=== PATIENT | female | born 1990 | race Caucasian/White ===

== ENCOUNTER 2016-06-15 08:36 | Emergency (ER) | payer OTHER ==
[2016-06-15 08:54] LABS: APPEARANCE,URINE Clear (CLEAR); COLOR,URINE Yellow (YELLOW); OCCULT BLOOD,URINE 2+ (NEGATIVE); PH URINE 5.5 (5.0 - 8.0); UROBILINOGEN URINE 0.2 Eu (0.2-1.0)
--- NOTE | 2016-06-15 09:00 | ED Physician Documentation ---
Female Urogenital Problems - HISTORIAN Historian: patient - HPI Stated Complaint: Difficulty Urinating Chief Complaint: Female Urogenital Problems Additional Information: 26 yo F here for dysuria, increased frequency x2-3 days. No f/c/n/v. Did have laparoscopic surgery to remove R falopian tube and ovary May 09, has been urinating well since that time. LMP 2 weeks ago and normal for her. No vaginal discharge, bleeding. No change in BM. No flank pain. Feels like she has to "sit on the toilet constantly, it always feels like i have to go." When she does urinate it is only small amount. States reluctant to drink b/c of dysuria. All other systems reviewed and negative except per HPI. - Associated Symptoms Urinary Symptoms: frequent urination, discomfort w/ urination, burning w/ urination, urgency w/ urination, pain w/ urination Discharge: denies: vaginal discharge - ROS CONST: none GI/: denies: nausea, vomiting, decreased appetite CVS/RESP: none EYES/ENT: none NEURO/PSYCH: none MS/SKIN/LYMPH: none - PAST HX Past History: other (anxiety) Surgeries/Procedures: salpingo-oophorectomy Allergies/Adverse Reactions: Allergies Allergy/AdvReac Type Severity Reaction Status Date / Time No Known Allergies Allergy Verified 06/15/16 08:52 - SOCIAL HX Smoking History: greater than 1 pack/day Alcohol Use: none Drug Use: none - FAMILY HX Family History: none - VITAL SIGNS Vital Signs: Vital Signs Temp Pulse Resp BP Pulse Ox 97.8 F 98 H 18 137/103 99 06/15/16 08:40 06/15/16 08:40 06/15/16 08:40 06/15/16 08:40 06/15/16 08:40 - REVIEWED ASSESSMENTS Nursing Assessment Reviewed: Yes Vitals Reviewed: Yes ED Results Lab/Radiology - Orders Orders: ED Orders Category Date Time Status In & Out Cath [Intermittent urinary catheteri] 1T Care 06/15/16 08:47 Active URINALYSIS Routine Lab 06/15/16 08:50 Received Female Urogenital Problems - EXAM General Appearance: mild distress EENT: ENT inspection normal, pharynx normal Respiratory: no resp. distress, breath sounds nml CVS: reg rate & rhythm, heart sounds normal, no murmur Abdomen: soft, non-tender, no organomegaly, nml bowel sounds, tenderness ( suprapubic. No rebound or guarding. ) Skin: color nml, no rash, warm,dry Extremities: non-tender Neuro: oriented X3 Discharge Clincal Impression: Urinary tract infection Qualifiers: Urinary tract infection type: acute cystitis Hematuria presence: with hematuria Qualified Code(s): N30.01 - Acute cystitis with hematuria Referrals: Jos Pradhan MD [Primary Care Provider] - 2 Days Comments: Cath specimen, but still with sig squam. Still looks like UTI and fits clinical picture. Treat with bactrim and Azo. RTC prn Condition: Good Disposition: 01 HOME, SELF-CARE Decision to Admit: NO Decision Time: 09:11
[2016-06-15 09:07] LABS: AMORPHOUS SEDIMENT,UR MODERATE (NEGATIVE)
[2016-06-15 09:21] VITALS: BP 120/68
== END 2016-06-15 09:14 | disposition home or self-care (01) ==
LOC: ED 08:36
DX: N30.01 Acute cystitis with hematuria (principal); F17.210 Nicotine dependence, cigarettes, uncomplicated
CPT/HCPCS: 51701; 81002; 87086; 87186; 99283

== ENCOUNTER 2016-12-03 14:51 | Emergency (ER) | payer OTHER ==
--- NOTE | 2016-12-03 15:34 | ED Physician Documentation ---
General Adult - HISTORIAN Historian: patient - HPI Chief Complaint: Psychological Disorder Onset: days ago Timing: still present Severity: moderate Further Comments: yes (Patient states that she has been having some depression for the last 5 month. Has had some depression for some time. Has been thingking about dying a lot. Does not feel that she is suicidial. Has been taking xanax and does not feel that it is helping for her anxiety. Feels tired all the time. Is staying with her boyfriend.) - ROS CONST: no problems CVS/RESP: none. denies: chest pain, shortness of breath GI/: none. denies: abdominal pain MS/SKIN/LYMPH: denies: calf pain - PAST HX Past History: none Other History: none Surgeries/Procedures: none Allergies/Adverse Reactions: Allergies Allergy/AdvReac Type Severity Reaction Status Date / Time tramadol AdvReac Intermediate Dizziness, Verified 12/03/16 15:09 Tremors, Nausea/Vomiting Home Medications: Ambulatory Orders Medication Instructions Recorded Bupropion HCl [Wellbutrin] 75 mg PO BID #60 tablet 12/03/16 - SOCIAL HX Smoking History: less than 1 pack/day (1/2 ppd) Alcohol Use: occasionally Drug Use: none - FAMILY HX Family History: No - VITAL SIGNS Vital Signs: Vital Signs Temp Pulse Resp BP Pulse Ox 120/68 06/15/16 09:14 - REVIEWED ASSESSMENTS Nursing Assessment Reviewed: Yes Vitals Reviewed: Yes Progress - Results/Orders Results/Orders: At the time of discharge and after talking to her boyfriend patient was much calmer, continues to deny any suicide thoughts or ideas. States she is not sure why she scratched herself last noc when intoxicated. Does not remember doing it. It was felt that she was stable to go home. Patient is satisfied when plan and agreed to return if she has any further problems. General Adult Physical Exam - PHYSICAL EXAM GENERAL APPEARANCE: no distress EENT: eye inspection normal NECK: normal inspection, supple. No: thyroid normal RESPIRATORY: no resp distress, chest non-tender, breath sounds normal. No: wheezes, rales, rhonchi CVS: reg rate & rhythm, heart sounds normal ABDOMEN: soft, no organomegaly, normal bowel sounds, no abdominal bruit, no distension, non-tender NEURO: oriented X3, CN's nml as tested, cognition normal, depressed mood/affect Discharge Clincal Impression: Depression Prescriptions: Bupropion HCl [Wellbutrin] 75 mg PO BID #60 tablet Referrals: Jos Pradhan MD [Primary Care Provider] - 2 Days Additional Instructions: I will make referral for [facility]. Start Wellbutrin 75mg once a day for a week then twice day. If you have any further problems to return to the ED or see your primary care provider. Home Medications: Ambulatory Orders Bupropion HCl [Wellbutrin] 75 mg PO BID #60 tablet 12/03/16 Condition: Stable Disposition: 01 HOME, SELF-CARE Decision to Admit: NO Date of Decison to Admit: 12/03/16 Decision Time: 17:48
[2016-12-03 16:52] LABS: BASOPHILS % 0.7 (0.0-1.5); EOSINOPHILS % 1.2 % (0.0-6.8); MEAN CORPUSCULAR HEMOGLOBIN 31.4 pg (28.0-34.0); MONOCYTES % 4.7 % (0.0-11.0); NEUTROPHILS # 4.8 # k/uL (1.4-7.7)
[2016-12-03 17:02] LABS: eGFR (African) > 60; eGFR (Non-African) > 60
[2016-12-03 18:00] VITALS: BP 128/67
== END 2016-12-03 17:59 | disposition home or self-care (01) ==
LOC: ED 14:51
DX: F32.9 Major depressive disorder, single episode, unspecified (principal)
CPT/HCPCS: 80053; 84439; 84443; 84481; 85025; 99283

== ENCOUNTER 2017-04-28 08:54 | Emergency (ER) | payer OTHER ==
--- NOTE | 2017-04-28 09:00 | ED Physician Documentation ---
General Adult - HISTORIAN Historian: patient - HPI Stated Complaint: headache, vomiting, right lower back pain and stomach pain Chief Complaint: Abdominal Pain Onset: hours (2) Timing: still present Severity: moderate Further Comments: yes (She reports that she was on her way to work under 2 hours ago and she felt "bad" she thought she just needed to eat. She then reports she got a headache and she started to have right lower back pain and abdominal discomort with nasuea and vomiting. Denies any recent illness. She states that she does have panic attacks but she does not feel this is a panic attack. She has a history of kidney stones. She denies any recent trauma. No fever. No pain or obvious blood in urine) Last known Well Code/Unknown Code: Unknown - ROS CONST: denies: fever, recent illness EYES/ENT: denies: problems with vision, sore throat, nasal congestion CVS/RESP: denies: chest pain, shortness of breath, cough GI/: abdominal pain, vomiting, nausea. denies: problems urinating MS/SKIN/LYMPH: denies: joint pain, leg swelling, rash NEURO/PSYCH: headache, dizziness. denies: fainting - PAST HX Past History: other (panic attacks, blood clot while ) Other History: none Surgeries/Procedures: none Immunizations: referred to PCP Allergies/Adverse Reactions: Allergies Allergy/AdvReac Type Severity Reaction Status Date / Time tramadol AdvReac Intermediate Dizziness, Verified 04/28/17 09:08 Tremors, Nausea/Vomiting - SOCIAL HX Smoking History: non-smoker Alcohol Use: none Drug Use: none - FAMILY HX Family History: No - VITAL SIGNS Vital Signs: Vital Signs Temp Pulse Resp BP Pulse Ox 128/67 12/03/16 17:59 - REVIEWED ASSESSMENTS Nursing Assessment Reviewed: Yes Vitals Reviewed: Yes Progress - Progress Progress: 0950: Pt reports she has decrease in nausea and pain. DG 1017: Discussed labs with pt. She feels better and is agreeable to going home with Nausea meds and Ibuprofen 800 mg BID as needed for pain. DG General Adult Physical Exam - PHYSICAL EXAM GENERAL APPEARANCE: mild distress EENT: SIDNEY, TM's nml NECK: normal inspection RESPIRATORY: no resp distress, chest non-tender, breath sounds normal CVS: reg rate & rhythm, heart sounds normal, no murmur ABDOMEN: soft, normal bowel sounds, no distension, non-tender. No: guarding SKIN: warm/dry, normal color EXTREMITIES: non-tender, normal range of motion NEURO: oriented X3, CN's nml as tested, motor nml, sensation nml, mood/affect nml, cognition normal Discharge Clincal Impression: Nausea Referrals: Jos Pradhan MD [Primary Care Provider] - 2 Days Comments: Follow up with PCP Take Zofran 4 mg every 8 hours as needed for nausea Ibuprofen 800 mg BID as needed for headache or back pain Rest Increase fluids Return to ER for increase in symptoms Condition: Stable Disposition: 01 HOME, SELF-CARE Decision to Admit: NO Date of Decison to Admit: 04/28/17 Decision Time: 10:19
[2017-04-28] MEDS ORDERED: ONDANSETRON HCL/PF 4 MG/ 2ML VIAL IVP ONE (09:06)
[2017-04-28] MEDS ORDERED: 0.9 % SODIUM CHLORIDE 1,000 ML IV ONE (09:06)
[2017-04-28] MEDS ORDERED: KETOROLAC TROMETHAMINE 30 MG/1ML VIAL IVP ONE (09:06)
[2017-04-28 09:34] LABS: BASOPHILS % 0.7 (0.0-1.5); EOSINOPHILS % 2.1 % (0.0-6.8); MEAN CORPUSCULAR HEMOGLOBIN 30.8 pg (28.0-34.0); MEAN CORPUSCULAR VOLUME 90.2 fl (80.0-100.0); MONOCYTES % 3.9 % (0.0-11.0); NEUTROPHILS # 4.3 # k/uL (1.4-7.7)
[2017-04-28 09:49] LABS: APPEARANCE,URINE Clear (CLEAR); COLOR,URINE Yellow (YELLOW); OCCULT BLOOD,URINE Negative (NEGATIVE); PH URINE 5.5 (5.0 - 8.0); UROBILINOGEN URINE 0.2 Eu (0.2-1.0)
[2017-04-28 09:55] LABS: eGFR (African) > 60; eGFR (Non-African) > 60
[2017-04-28 10:42] VITALS: BP 132/82
== END 2017-04-28 10:34 | disposition home or self-care (01) ==
LOC: ED 08:54
DX: R11.0 Nausea (principal)
CPT/HCPCS: 80053; 81002; 85025; J1885; J2405; J7030; 96361; 96374; 96375; 99283; S1016

== ENCOUNTER 2017-10-05 18:29 | Emergency (ER) | payer OTHER ==
[2017-10-05 19:15] VITALS: BP 136/82
[2017-10-05] MEDS ORDERED: SUMAtriptan SUCCINATE 6 MG/0.5 ML VIAL SQ ONE (20:07)
[2017-10-05 21:22] LABS: BASOPHILS % 0.5 (0.0-1.5); EOSINOPHILS % 2.1 % (0.0-6.8); MEAN CORPUSCULAR HEMOGLOBIN 31.1 pg (28.0-34.0); MEAN CORPUSCULAR VOLUME 92.3 fl (80.0-100.0); MONOCYTES % 3.8 % (0.0-11.0); NEUTROPHILS # 5.8 # k/uL (1.4-7.7)
[2017-10-05 22:29] LABS: eGFR (African) > 60; eGFR (Non-African) > 60
--- NOTE | 2017-10-05 22:46 | Diagnostic Imaging Report ---
[facility] [address] [facility] [address] [place], [place]. [address] Report Submission Date: Oct 05, 2017 10:19:24 PM CDT Patient Study Name: MARCIO MUHAMMAD Date: Oct 05, 2017 9:29:45 PM CDT Modality Type: CT\SR Gender: F Description: CT BRAIN W/O CONTRAST : 89 Institution: [facility] Physician: JUVENAL COLBERT CT brain noncontrast Date of study: October 05, 2017. CLINICAL HISTORY: PT STATES HEADACHE AND BLURRING VISION (Hx) / ITS.REASON headache (DICOM Hx) TECHNIQUE: 5 mm contiguous axial images of the brain, noncontrast. FINDINGS: No comparison studies are provided. There is no evidence of intracranial mass effect, hemorrhage, or acute hydrocephalus. The lateral ventricles are symmetrical and the 4th ventricle is midline without shift. No acute brain parenchymal changes or extra-axial fluid collections are identified. The posterior fossa contents are within normal limits. The calvarium is intact. The visualized sinuses and mastoid air cells are clear. IMPRESSION: No acute intracranial process. Electronically signed on Oct 05, 2017 10:19:24 PM CDT by: David SAHU
--- NOTE | 2017-10-07 05:40 | ED Physician Documentation ---
Headache - HISTORIAN Historian: patient - HPI Stated Complaint: Intermittent dilation of Rt pupil Chief Complaint: Headache Additional Information: started right sided headache behind right eye with dilated right pupil and blurred vision Onset: days ago (1) Timing: abrupt Exposure To: none Severity: moderate Quality: similar to previous Associated Symptoms: other (dilated right pupil and blurred vision) Preceding Symptoms: visual disturbance Exacerbated By: light, noise Further Comments: no - ROS NEURO/PSYCH: anxiety EYES/ENT: denies: sore throat, difficulty swallowing, sinus pain, drainage CVS/RESP: none GI/: denies: abdominal pain, diarrhea, problems urinating, incontinence MS/SKIN/LYMPH: denies: muscle aches, back pain, rash all systems neg except as marked: Yes - PAST HX Medical History: other (migraines, bipolar disorder) Surgical History: no surgical history Immunizations: referred to PCP Allergies/Adverse Reactions: Allergies Allergy/AdvReac Type Severity Reaction Status Date / Time tramadol AdvReac Intermediate Dizziness, Verified 10/05/17 19:15 Tremors, Nausea/Vomiting Home Medications: Ambulatory Orders Medication Instructions Recorded Bupropion HCl [Bupropion Xl] 150 mg PO D 10/05/17 Clonazepam 0.5 mg PO BID 10/05/17 Lamotrigine [Lamictal] 25 mg PO D 10/05/17 Meloxicam 7.5 mg PO D 10/05/17 Ranitidine HCl 300 mg PO D 10/05/17 - SOCIAL HX Smoking History: cigarettes Alcohol Use: none Drug Use: none - Family HX Family History: none - VITAL SIGNS Vital Signs: Vital Signs Temp Pulse Resp BP Pulse Ox 98.6 F 80 18 136/82 99 10/05/17 23:00 10/05/17 23:00 10/05/17 23:00 10/05/17 23:00 10/05/17 23:00 - REVIEWED ASSESSMENTS Nursing Assessment Reviewed: Yes Vitals Reviewed: Yes Progress - Results/Orders Results/Orders: ct head ordered - Progress Progress: pt. given 6 mg sumatriptan sq in ER with resolution of headache and dilated pupil Critical Care Note - Critical Care Note Total Time (mins): 0 ED Results Lab/Radiology - Lab Results Lab Results: Lab Results 10/05/17 10/05/17 10/05/17 20:50 20:46 20:44 WBC 9.50 K/ul K/ul (4.00-12.00) RBC 4.76 M/ul M/ul (3.90-5.20) Hgb 14.8 g/dL g/dL (12.0-16.0) Hct 44.0 % % (34.5-46.5) MCV 92.3 fl fl (80.0-100.0) MCH 31.1 pg pg (28.0-34.0) MCHC 33.6 g/dL g/dL (30.0-36.0) RDW 12.7 % % (11.3-14.3) Plt Count 288 K/mm3 K/mm3 (130-400) Neut % (Auto) 61.1 % % (39.0-79.0) Lymph % (Auto) 30.8 % % (16.0-50.0) [place] % (Auto) 3.8 % % (0.0-11.0) Eos % (Auto) 2.1 % % (0.0-6.8) Baso % (Auto) 0.5 (0.0-1.5) Neut # (Auto) 5.8 # k/uL # k/uL (1.4-7.7) Lymph # (Auto) 2.9 # k/uL # k/uL (0.6-4.0) [place] # (Auto) 0.4 # k/uL # k/uL (0.0-0.9) Eos # (Auto) 0.2 # k/uL # k/uL (0.0-0.6) Baso # (Auto) 0.0 # k/uL # k/uL (0.0-0.5) Reactive Lymphs % 1.7 % % (0.0-5.0) Reactive Lymphs # 0.2 # k/uL # k/uL (0.0-0.8) Sodium 143 mmol/L mmol/L (136-145) Potassium 3.9 mmol/L mmol/L (3.5-5.1) Chloride 106 mmol/L mmol/L (98-107) Carbon Dioxide 26 mmol/L mmol/L (22-30) BUN 12 mg/dL mg/dL (7-17) Creatinine 0.60 mg/dL mg/dL (0.52-1.04) Estimated Creat Clear 215 Est GFR ( Amer) > 60 (60 - ) Est GFR (Non-Af Amer) > 60 (60 - ) Glucose 105 mg/dL mg/dL (74-106) Calcium 9.7 mg/dL mg/dL (8.4-10.2) Total Bilirubin < 0.1 mg/dL L mg/dL (0.2-1.3) AST 17 U/L U/L (15-46) ALT 22 U/L U/L (13-69) Alkaline Phosphatase 67 U/L U/L (38-126) Total Protein 8.5 g/dL H g/dL (6.3-8.2) Albumin 5.1 g/dL H g/dL (3.5-5.0) Serum HCG, Qual Negative (NEGATIVE) - Radiology Radiology Impressions: ct head neg - Orders Orders: ED Orders Category Date Time Status CT BRAIN W/O CONTRAST Stat Exams 10/05/17 Completed CBC/PLATELET/DIFF Routine Lab 10/05/17 20:46 Completed CMP Routine Lab 10/05/17 20:44 Completed HCG [SERUM HCG] Routine Lab 10/05/17 20:50 Completed UA MACRO DIP ONLY Routine Lab 10/05/17 20:44 Received SUMAtriptan SUCCINATE [Imitrex] Med 10/05/17 20:07 Discontinued 6 mg SQ NOW ONE Headache Physical Exam - EXAM General Appearance: moderate distress EENT: unequal pupils (right pupil dilated compared to left pupil) Neck: normal inspection, thyroid normal, supple Respiratory: no resp distress, chest non-tender, breath sounds normal CVS: reg. rate & rhythm, heart sounds nml Abdomen: non-tender, no organomegaly, nml bowel sounds, no distention Skin: color nml, no rash Extremitites: non-tender, normal range of motion, no evidence of injury, no edema - NEURO/PSYCH Higher Functions: alert, oriented x3, nml speech, mood/affect nml Cranial: nml as tested, no evidence of acute CVA Cerebellar: nml as tested Sensorimotor: motor nml, sensation nml Discharge Clincal Impression: Migraine Qualifiers: Migraine type: ophthalmoplegic Intractability: intractable Qualified Code(s): G43.B1 - Ophthalmoplegic migraine, intractable Referrals: Jos Pradhan MD [Primary Care Provider] - 2 Days Comments: Discharged in stable condition with instruction to use Imitrex pills 100 mg she has at home 1 pill at onset of headache, repeat in 2 hrs prn Condition: Stable Disposition: 01 HOME, SELF-CARE Decision to Admit: NO Decision Time: 23:00
== END 2017-10-05 23:00 | disposition home or self-care (01) ==
LOC: ED 18:29
DX: G43.B1 Ophthalmoplegic migraine, intractable (principal)
CPT/HCPCS: 70450; 80053; 81002; 84703; 85025; J3030; 96372; 99284

== ENCOUNTER 2018-07-20 08:07 | Outpatient (CLI) | payer OTHER | END 2018-07-24 08:20 | LOC: LABRHC 08:07 | PROVIDERS: ATTEND Family Medicine | DX: R30.0 Dysuria (principal); N39.0 Urinary tract infection, site not specified; B96.89 Other specified bacterial agents as the cause of diseases classified elsewhere | CPT/HCPCS: 87086 ==

== ENCOUNTER 2018-11-10 13:38 | Emergency (ER) | payer OTHER ==
[2018-11-10] MEDS ORDERED: 0.9 % SODIUM CHLORIDE 1,000 ML IV ONE (14:49)
[2018-11-10] MEDS ORDERED: ONDANSETRON HCL/PF 4 MG/ 2ML VIAL IVP ONE (14:49)
--- NOTE | 2018-11-10 14:52 | ED Physician Documentation ---
Nausea/Vomiting/Diarrhea - HISTORIAN Historian: patient - HPI Stated Complaint: N/V/D Chief Complaint: Nausea,Vomiting,Diarrhea Additional Information: Patient presents to ED with a 4 day history of nausea/vomiting/diarrhea. Bridget ent reports 2-3 episodes of vomiting and 2-3 episodes of diarrhea daily for the past 4 days. Patient reports some epigastric pain with vomiting. Denies blood in stools. Onset: days ago (4) Duration: persistent Timing: sudden onset Context: denies: out of country travel, bad food Severity: moderate - ROS CONST: none - PAST HX Past History: none Surgeries/Procedures: none Allergies/Adverse Reactions: Allergies Allergy/AdvReac Type Severity Reaction Status Date / Time tramadol AdvReac Intermediate Dizziness, Verified 11/10/18 13:59 Tremors, Nausea/Vomiting Home Medications: Ambulatory Orders Medication Instructions Recorded Clonazepam [Klonopin] 2 mg PO PRN PRN 09/06/18 Promethazine HCl [Phenergan] 25 mg PO Q6 PRN #30 tablet 11/10/18 - SOCIAL HX Smoking History: non-smoker Alcohol Use: none Drug Use: none - FAMILY HX Family History: none - VITAL SIGNS Vital Signs: Vital Signs Temp Pulse Resp BP Pulse Ox 98.7 F 72 20 119/72 98 11/10/18 13:54 11/10/18 16:00 11/10/18 16:00 11/10/18 16:00 11/10/18 16:00 - REVIEWED ASSESSMENTS Nursing Assessment Reviewed: Yes Vitals Reviewed: Yes ED Results Lab/Radiology - Lab Results Lab Results: Lab Results 11/10/18 11/10/18 11/10/18 14:55 14:55 14:55 WBC 9.20 K/ul K/ul (4.00-12.00) RBC 4.85 M/ul M/ul (3.90-5.20) Hgb 15.1 g/dL g/dL (11.5-16.0) Hct 44.9 % % (34.5-46.5) MCV 93.0 fl fl (80.0-100.0) MCH 31.2 pg pg (28.0-34.0) MCHC 33.7 g/dL g/dL (30.0-36.0) RDW 12.2 % % (11.3-14.3) Plt Count 254 K/mm3 K/mm3 (130-400) Neut % (Auto) 57.6 % % (39.0-79.0) Lymph % (Auto) 33.7 % % (16.0-50.0) [place] % (Auto) 5.9 % % (0.0-11.0) Eos % (Auto) 2.2 % % (0.0-6.8) Baso % (Auto) 0.6 % % (0.0-1.5) Neut # (Auto) 5.3 # k/uL # k/uL (1.4-7.7) Lymph # (Auto) 3.1 # k/uL # k/uL (0.6-4.0) [place] # (Auto) 0.5 # k/uL # k/uL (0.0-0.9) Eos # (Auto) 0.2 # k/uL # k/uL (0.0-0.6) Baso # (Auto) 0.1 # k/uL # k/uL (0.0-0.5) Sodium 141 mmol/L mmol/L (137-145) Potassium 4.3 mmol/L mmol/L (3.5-5.1) Chloride 107 mmol/L mmol/L (98-107) Carbon Dioxide 27 mmol/L mmol/L (22-30) BUN 14 mg/dL mg/dL (7-17) Creatinine 0.61 mg/dL mg/dL (0.52-1.04) Estimated Creat Clear 192 Est GFR ( Amer) > 60 (60 - ) Est GFR (Non-Af Amer) > 60 (60 - ) Glucose 102 mg/dL mg/dL (74-106) Calcium 9.4 mg/dL mg/dL (8.4-10.2) Total Bilirubin 0.2 mg/dL mg/dL (0.2-1.3) AST 57 U/L H U/L (15-46) ALT 7 U/L L U/L (13-69) Alkaline Phosphatase 67 U/L U/L (38-126) Total Protein 7.9 g/dL g/dL (6.3-8.2) Albumin 4.8 g/dL g/dL (3.5-5.0) Serum HCG, Qual Negative (NEGATIVE) - Orders Orders: ED Orders Category Date Time Status Place IV Lock 1T Care 11/10/18 14:49 Active CBC/PLATELET/DIFF Routine Lab 11/10/18 14:55 Completed CMP Routine Lab 11/10/18 14:55 Completed HCG [SERUM HCG] Stat Lab 11/10/18 14:55 Completed 0.9 % Sodium Chloride [Normal Saline] 1,000 ml Med 11/10/18 14:49 Discontinued IV Q1H Ondansetron HCl/Pf [Zofran] Med 11/10/18 14:49 Discontinued 4 mg IVP NOW ONE Nausea Physical Exam - EXAM General Appearance: no acute distress, alert EENT: SIDNEY Neck: supple Respiratory: no resp distress, chest non-tender, breath sounds normal CVS: reg rate & rhythm, heart sounds normal Abdomen: non-tender. No: tenderness Back: non-tender Skin: warm/dry Extremities: non-tender Neuro/Psych: oriented X3, motor nml Discharge Clincal Impression: Gastroenteritis Prescriptions: Promethazine HCl [Phenergan] 25 mg PO Q6 PRN #30 tablet PRN Reason: nausea/vomiting Referrals: Jos Pradhan MD [Primary Care Provider] - 2 Days Additional Instructions: 1. Use over the counter imodium as needed for diarrhea 2. Promethazine every 6 hours as needed for nausea/vomiting 3. Drink plenty of fluids to maintain proper hydration 4. Follow up with PCP within 1 week 5. Return to ER for new or worsening symptoms Condition: Stable Disposition: 01 HOME, SELF-CARE Decision to Admit: NO Date of Decison to Admit: 11/10/18 Decision Time: 15:15
[2018-11-10 15:07] LABS: BASOPHILS % 0.6 % (0.0-1.5); NEUTROPHILS # 5.3 # k/uL (1.4-7.7)
[2018-11-10 15:17] LABS: eGFR (Non-African) > 60
[2018-11-10 16:01] VITALS: BP 119/72
== END 2018-11-10 16:01 | disposition home or self-care (01) ==
LOC: ED 13:38
DX: K52.9 Noninfective gastroenteritis and colitis, unspecified (principal)
CPT/HCPCS: 80053; 84703; 85025; 96361; 96374; 99284; J2405; J7030; S1016

== ENCOUNTER 2018-12-31 09:20 | Emergency (ER) | payer OTHER ==
--- NOTE | 2018-12-31 10:07 | ED Physician Documentation ---
Female Urogenital Problems - HISTORIAN Historian: patient - HPI Chief Complaint: Female Urogenital Problems Additional Information: Patient is a 28 year old female who presents to the ER with c/o excess vaginal bleeding- she thinks that she may be miscarrying. Last menses was back in October- test at that time was negative. test today is negative. She has been on a float trip this weekend and states she was passing large clots. Today is better. Onset: days ago (Started several days ago) Severity: moderate Location of Pain: low back pain - Vaginal Bleeding Compared to Menstrual Periods: heavier, passing clots LNMP (Last Known Menstrual Period): 10/29/18 : 2 Para: 1 : 1 Description of Menstrual: irregular period(s), abnormal period(s) Sexual History: active, pain w/ intercourse Contraceptive: none - ROS CONST: none GI/: denies: nausea, vomiting CVS/RESP: none EYES/ENT: none NEURO/PSYCH: none MS/SKIN/LYMPH: none - PAST HX Past History: ovarian cyst(s), spontaneous Other History: none Immunizations: UTD Allergies/Adverse Reactions: Allergies Allergy/AdvReac Type Severity Reaction Status Date / Time tramadol AdvReac Intermediate Dizziness, Verified 12/31/18 09:51 Tremors, Nausea/Vomiting Home Medications: Ambulatory Orders Medication Instructions Recorded Clonazepam [Klonopin] 2 mg PO PRN PRN 09/06/18 - SOCIAL HX Smoking History: less than 1 pack/day Alcohol Use: none Drug Use: none - FAMILY HX Family History: ovarian cysts - VITAL SIGNS Vital Signs: Vital Signs Temp Pulse Resp BP Pulse Ox 119/72 11/10/18 16:00 - REVIEWED ASSESSMENTS Nursing Assessment Reviewed: Yes Vitals Reviewed: Yes Female Urogenital Problems - EXAM General Appearance: alert, mild distress EENT: eye inspection normal, ENT inspection normal, pharynx normal, no signs of dehydration, SIDNEY Neck: nml inspection Respiratory: breath sounds nml CVS: heart sounds normal, equal pulses Abdomen: soft, non-tender, nml bowel sounds Pelvic: external exam nml, active bleeding, moderate, blood in vaginal vault, blood clots in vault (small), bimanual exam nml. No: cerv.motion tenderness, adnexal tenderness (R) Back: non-tender, painless ROM Skin: color nml, no rash, warm,dry Extremities: non-tender, normal range of motion Neuro: oriented X3, CN's nml as tested, motor nml, sensation nml, mood/affect nml, cognition normal Discharge Clincal Impression: Vaginal bleeding, abnormal Referrals: Jos Pradhan MD [Primary Care Provider] - 2 Days Condition: Good Disposition: 01 HOME, SELF-CARE Decision to Admit: NO Decision Time: 10:22
[2018-12-31 10:08] VITALS: BP 142/93
[2018-12-31 12:27] LABS: OCCULT BLOOD,URINE 3+ (NEGATIVE); PH URINE 7.5 (5.0 - 8.0); UROBILINOGEN URINE 0.2 Eu (0.2-1.0)
[2018-12-31 18:02] LABS: URINE HCG NEGATIVE (NEGATIVE)
== END 2018-12-31 10:15 | disposition home or self-care (01) ==
LOC: ED 09:20
DX: N93.9 Abnormal uterine and vaginal bleeding, unspecified (principal)
CPT/HCPCS: 81002; 81025; 99281; 99282